=== PATIENT | male | born 1950 | race Caucasian/White ===

== ENCOUNTER 2017-12-30 12:34 | Emergency (ER) | payer OTHER ==
[~2017-12-30] VITALS: Ht 170.2 cm; Wt 94.0 kg
[~2017-12-30 12:34] MED LIST: DIAB1.25 PO; GLYB1TAB50 PO; LEVEMIR SQ; METF-324 PO; METO50TA PO; NOVOLOGP2 SQ; PRIN20TA2 PO; ZOCO80TA PO
[2017-12-30 12:45] VITALS: BP 137/73; PULSE 93; RESP 18; TEMP 97.7; O2SAT 96
[2017-12-30] MEDS ORDERED: SODIUM CHLOR 0.9% 1000 ML INJ 1,000 ML IV ONE ×2 (12:45→14:00)
[2017-12-30] MEDS ORDERED: SODIUM CHLORIDE 0.9% FLUSH 10 ML FLUSH IVF PRN (12:45)
[2017-12-30 12:46] VITALS: RESP 18; O2SAT 98
--- NOTE | 2017-12-30 13:10 | RADRPT ---
EXAM DATE/TIME: 12/30/2017 12:47 [facility] COMPARISON: CHEST SINGLE AP, April 29, 2010, 13:12. INDICATIONS : Syncope, short of breath. MEDICAL HISTORY : Myocardial infarction. SURGICAL HISTORY : Coronary artery stent. ENCOUNTER: Initial ACUITY: 1 day PAIN SCORE: 0/10 LOCATION: Bilateral chest FINDINGS: A single view of the chest demonstrates the lungs to be symmetrically aerated without evidence of mas s, infiltrate or effusion. The cardiomediastinal contours are unremarkable. Osseous structures are intact. CONCLUSION: No acute disease. No significant change has occurred. Slava Neves MD on December 30, 2017 at 13:08 Board Certified Radiologist. This report was verified electronically.
[2017-12-30 13:25] LABS: AUTOMATED NEUTROPHIL # 15.3 TH/MM3 (1.8-7.7); BASOPHIL # 0.1 TH/MM3 (0-0.2); BASOPHIL % 0.3 % (0.0-2.0); EOSINOPHIL # 0.2 TH/MM3 (0-0.4); EOSINOPHIL % 1.1 % (0.0-4.0); HEMATOCRIT 49.5 % (39.0-51.0); HEMOGLOBIN 16.8 GM/DL (13.0-17.0); LYMPH % 7.5 % (9.0-44.0); LYMPHOCYTE # 1.3 TH/MM3 (1.0-4.8); MEAN CELL VOLUME 88.9 FL (80.0-100.0); MEAN CORPUSCULAR HEMOGLOBIN 30.2 PG (27.0-34.0); MEAN CORPUSCULAR HGB CONC 33.9 % (32.0-36.0); MEAN PLATELET VOLUME 8.8 FL (7.0-11.0); MONO % 5.2 % (0.0-8.0); MONOCYTE # 0.9 TH/MM3 (0-0.9); NEUT % 85.9 % (16.0-70.0); PLATELET COUNT 247 TH/MM3 (150-450); RED BLOOD COUNT 5.57 MIL/MM3 (4.50-5.90); RED CELL DISTRIBUTION WIDTH 13.8 % (11.6-17.2); WHITE BLOOD COUNT 17.8 TH/MM3 (4.0-11.0)
[2017-12-30 13:33] VITALS: BP 106/61; PULSE 98; RESP 18; O2SAT 99
[2017-12-30 13:38] LABS: PROTHROMBIN TIME - PATIENT 10.5 SEC (9.8-11.6)
[2017-12-30 13:44] LABS: ALKALINE PHOSPHATASE 108 U/L (45-117); TOTAL BILIRUBIN ADULT 0.6 MG/DL (0.2-1.0); TOTAL PROTEIN 7.9 GM/DL (6.4-8.2); TROPONIN I LESS THAN 0.02 NG/ML (0.02-0.05)
[2017-12-30] MEDS ORDERED: ONDANSETRON HCL 4 MG/2 ML VIAL IV PUSH ONE (13:45)
[2017-12-30 13:47] LABS: ALBUMIN 3.6 GM/DL (3.4-5.0); ALT (GPT) 17 U/L (12-78); AST (GOT) 25 U/L (15-37); BICARBONATE 25.5 MEQ/L (21.0-32.0); BLOOD UREA NITROGEN 22 MG/DL (7-18); CHLORIDE 108 MEQ/L (98-107); CREATININE 1.53 MG/DL (0.60-1.30); GLOMERULAR FILTRATION RATE 45 ML/MIN (>89); GLUCOSE,RANDOM 145 MG/DL (74-106); SODIUM (NA) 141 MEQ/L (136-145)
--- NOTE | 2017-12-30 13:52 | RADRPT ---
EXAM DATE/TIME: 12/30/2017 13:29 [facility] COMPARISON: No previous studies available for comparison. INDICATIONS : Syncope RADIATION DOSE: 40.03 CTDIvol (mGy) MEDICAL HISTORY : Hypertension. Diabetes mellitus type 2. SURGICAL HISTORY : None. ENCOUNTER: Initial ACUITY: 1 day PAIN SCALE: 4/10 LOCATION: cranial TECHNIQUE: Multiple contiguous axial images were obtained of the head. Using automated exposure control and adj ustment of the mA and/or kV according to patient size, radiation dose was kept as low as reasonably a chievable to obtain optimal diagnostic quality images. DICOM format image data is available electro nically for review and comparison. FINDINGS: CEREBRUM: The ventricles are normal for age. No evidence of midline shift, mass lesion, hemorrhage or acute in farction. No extra-axial fluid collections are seen. POSTERIOR FOSSA: The cerebellum and brainstem are intact. The 4th ventricle is midline. The cerebellopontine angle i s unremarkable. EXTRACRANIAL: The visualized portion of the orbits is intact. SKULL: The calvaria is intact. No evidence of skull fracture. CONCLUSION: No acute disease. All James MD on December 30, 2017 at 13:49 Board Certified Radiologist. This report was verified electronically.
[2017-12-30 14:01] VITALS: BP_SYST 104; BP_SYST 126; BP_SYST 78; BP_DIAS 57; BP_DIAS 68; BP_DIAS 72; BP_DIAS 73; PULSE 97; RESP 18; O2SAT 98
[2017-12-30] MEDS ORDERED: METO50TA PO (14:31)
[2017-12-30] MEDS ORDERED: INSU1INJ14 SQ (14:31)
[2017-12-30] MEDS ORDERED: GLIM4TAB PO (14:31)
[2017-12-30] MEDS ORDERED: METF1000 PO (14:31)
[2017-12-30] MEDS ORDERED: ZOCO80TA PO (14:31)
[2017-12-30 15:10] VITALS: BP_SYST 124; BP_SYST 126; BP_DIAS 75; BP_DIAS 76; BP_DIAS 79; RESP 18
[2017-12-30] MEDS ORDERED: OSEL75 PO (15:27)
--- NOTE | 2017-12-30 15:27 | PD ---
HPI Chief Complaint: Syncope/Near-Syncope Time Seen by Provider: 12:44 Travel History International Travel<30 days: No Contact w/Intl Traveler<30days: No Traveled to known affect area: No History of Present Illness HPI Patient is a 67 year old male who comes in after a syncopal episode. He says he had several episodes of diarrhea this morning. He does not remember if he hit his head. He denies having chest pain or SOB. He says multiple people at home (kids and grandkids) are sick with the flu. He denies nausea or vomiting. He denies any abdominal pain. He denies chest pain or SOB. Severity is mild to moderate. PFSH Past Medical History Cardiovascular Problems: Yes (arrythmia -> meds/ablation) High Cholesterol: Yes Diabetes: Yes Patient Takes Glucophage: Yes Diminished Hearing: No Gastrointestinal Disorders: No Genitourinary: No Hypertension: Yes Musculoskeletal: No Neurologic: No Reproductive: No Respiratory: No ?: Not Past Surgical History Abdominal Surgery: Yes (HERNIA REPAIR) Cardiac Surgery: No Ear Surgery: No Endocrine Surgery: No Eye Surgery: Yes (LASER SURGERY) Genitourinary Surgery: No Gynecologic Surgery: No Neurologic Surgery: No Oral Surgery: No Thoracic Surgery: No Other Surgery: Yes Social History Alcohol Use: No Tobacco Use: No Substance Use: No Allergies-Medications (Allergen,Severity, Reaction): Coded Allergies: Sulfa (Sulfonamide Antibiotics) (Unverified Allergy, Severe, HIVES, ) Reported Meds & Prescriptions Reported Meds & Active Scripts Active Reported Tresiba Flextouch Pen Inj (Insulin Degludec Inj) 300 unit/3 ML Pen 40 Units SQ DAILY Zocor (Simvastatin) 80 Mg Tab 80 Mg PO HS Metoprolol Tartrate 50 Mg Tab 50 Mg PO DAILY Metformin (Metformin HCl) 1,000 Mg Tab 1,000 Mg PO BID Glimepiride 4 Mg Tab 4 Mg PO DAILY Take with breakfast or first main meal Review of Systems Except as stated in HPI: all other systems reviewed are Neg General / Constitutional: No: Fever, Chills HENT: No: Headaches Cardiovascular: No: Chest Pain or Discomfort Respiratory: No: Shortness of Breath Gastrointestinal: Positive: Diarrhea, No: Abdominal Pain Genitourinary: No: Dysuria Musculoskeletal: No: Myalgias, Edema Skin: No Rash, No Change in Pigmentation Physical Exam Narrative GENERAL: Awake and alert, in no acute distress. SKIN: Focused skin assessment warm/dry. No wounds or signs of infection. HEAD: Atraumatic. Normocephalic. EYES: Pupils equal and round. No scleral icterus. EOMI. ENT: Mucous membranes pink and moist. NECK: Trachea midline. No JVD. CARDIOVASCULAR: Regular rate and rhythm. No murmur appreciated. RESPIRATORY: No accessory muscle use. Clear to auscultation. Breath sounds equal bilaterally. GASTROINTESTINAL: Abdomen soft, non-tender, nondistended. MUSCULOSKELETAL: No obvious deformities. No clubbing. No cyanosis. No edema. NEUROLOGICAL: Awake and alert. No obvious cranial nerve deficits. Motor grossly within normal limits. Normal speech. PSYCHIATRIC: Appropriate mood and affect; insight and judgment normal. Data Data Last Documented VS Vital Signs Date Time Temp Pulse Resp B/P (MAP) Pulse Ox O2 Delivery O2 Flow Rate FiO2 12/30/17 15:10 104 18 124/75 (91) 118 18 126/79 (95) 109 18 126/76 (93) 12/30/17 14:01 98 Room Air 12/30/17 12:45 97.7 Orders Orders Electrocardiogram (12/30/17 12:45) Complete Blood Count With Diff (12/30/17 12:45) Comprehensive Metabolic Panel (12/30/17 12:45) Troponin I (12/30/17 12:45) Act Partial Throm Time (Ptt) (12/30/17 12:45) Prothrombin Time / Inr (Pt) (12/30/17 12:45) Chest, Single Ap (12/30/17 12:45) Ct Brain W/O Iv Contrast(Rout) (12/30/17 12:45) Ecg Monitoring (12/30/17 12:45) Iv Access Insert/Monitor (12/30/17 12:45) Oximetry (12/30/17 12:45) Sodium Chloride 0.9% Flush (Ns Flush) (12/30/17 12:45) Sodium Chlor 0.9% 1000 Ml Inj (Ns 1000 M (12/30/17 12:45) Ondansetron Inj (Zofran Inj) (12/30/17 13:45) Sodium Chlor 0.9% 1000 Ml Inj (Ns 1000 M (12/30/17 14:00) Labs Laboratory Tests Test 12/30/17 13:08 White Blood Count 17.8 TH/MM3 Red Blood Count 5.57 MIL/MM3 Hemoglobin 16.8 GM/DL Hematocrit 49.5 % Mean Corpuscular Volume 88.9 FL Mean Corpuscular Hemoglobin 30.2 PG Mean Corpuscular Hemoglobin Concent 33.9 % Red Cell Distribution Width 13.8 % Platelet Count 247 TH/MM3 Mean Platelet Volume 8.8 FL Neutrophils (%) (Auto) 85.9 % Lymphocytes (%) (Auto) 7.5 % Monocytes (%) (Auto) 5.2 % Eosinophils (%) (Auto) 1.1 % Basophils (%) (Auto) 0.3 % Neutrophils # (Auto) 15.3 TH/MM3 Lymphocytes # (Auto) 1.3 TH/MM3 Monocytes # (Auto) 0.9 TH/MM3 Eosinophils # (Auto) 0.2 TH/MM3 Basophils # (Auto) 0.1 TH/MM3 CBC Comment DIFF FINAL Differential Comment Prothrombin Time 10.5 SEC Prothromb Time International Ratio 1.0 RATIO Activated Partial Thromboplast Time 22.9 SEC Blood Urea Nitrogen 22 MG/DL Creatinine 1.53 MG/DL Random Glucose 145 MG/DL Total Protein 7.9 GM/DL Albumin 3.6 GM/DL Calcium Level 9.0 MG/DL Alkaline Phosphatase 108 U/L Aspartate Amino Transf (AST/SGOT) 25 U/L Alanine Aminotransferase (ALT/SGPT) 17 U/L Total Bilirubin 0.6 MG/DL Sodium Level 141 MEQ/L Potassium Level 5.4 MEQ/L Chloride Level 108 MEQ/L Carbon Dioxide Level 25.5 MEQ/L Anion Gap 8 MEQ/L Estimat Glomerular Filtration Rate 45 ML/MIN Troponin I LESS THAN 0.02 NG/ML MDM Medical Decision Making Medical Screen Exam Complete: Yes Emergency Medical Condition: Yes Medical Record Reviewed: Yes Interpretation(s) ECG shows NSR at 90, no ST elevation or depression. Differential Diagnosis dehydration vs influenza vs diarrhea vs electrolyte abnormalities Narrative Course Patient is a 67 year old male who comes in after a syncopal episode. Exam shows no acute abnormalities. IV established, labs sent. Given IVF. Patient found to be orthostatic. After 2 L of fluids, orthostasis improved. Labs show an elevated WBC count, no other acute abnormalities. I believe the syncope is due to volume loss from diarrhea. Based on influenza exposure history, will start Tamiflu. Patient feels better and would like to go home. He is advised to increase his fluid intake. Advised to follow up with a primary doctor. Advised to return at any time for any worsening symptoms. Diagnosis Primary Impression: Diarrhea Qualified Codes: R19.7 - Diarrhea, unspecified Additional Impressions: Dehydration Influenza Referrals: [facility] call for appointment Patient Instructions: Acute Diarrhea (ED), General Instructions, Influenza (ED) , Syncope (ED) Additional Instructions: Increase your fluid intake. Follow-up with a primary care doctor. Return to the ED as needed for any worsening symptoms. Scripts Oseltamivir (Tamiflu) 75 Mg Cap 75 MG PO BID for Mgmt Viral Infection for 5 Days, #10 CAP 0 Refills Prov: Brigida Shine MD 12/30/17 Disposition: 01 DISCHARGE HOME Condition: Stable Brigida Shine MD Dec 30, 2017 15:27
--- NOTE | 2017-12-31 19:50 | EKG ---
Date Performed: 12/30/2017 Time Performed: 12:44:47 PTAGE: 67 years EKG: Sinus rhythm NONSPECIFIC T-WAVE ABNORMALITY Since previous tracing, no significant change noted BORDERLINE ECG PREVIOUS TRACING : 04/30/2010 15.01 DOCTOR: Lobito Ballard Interpretating Date/Time 12/31/2017 19:48:51
== END 2017-12-30 15:59 | disposition home or self-care (01) ==
LOC: NEPC 12:34
DX: R19.7 Diarrhea, unspecified (principal); E86.0 Dehydration; J11.1 Influenza due to unidentified influenza virus with other respiratory manifestations; E11.9 Type 2 diabetes mellitus without complications; E78.00 Pure hypercholesterolemia, unspecified; I10 Essential (primary) hypertension; Z79.84 Long term (current) use of oral hypoglycemic drugs
CPT/HCPCS: 70450; 71045; 80053; 84484; 85025; 85610; 85730; 93005; 96374; 99284; J2405; J7030